=== PATIENT | male | born 1985 | race Caucasian/White ===

== ENCOUNTER 2017-03-14 09:05 | Emergency (ER) | payer MEDICARE ==
[2017-03-14] MEDS ORDERED: Acetaminophen-Codeine 300/30 mg Tab PO STA (09:44)
--- NOTE | 2017-03-14 09:44 | C.PDOC ---
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 N OTHER ASSOC INJURY. LIMITED WT BEAR EXAM NONTOXIC EXT R LE +GEN TEND R LAT FOOT W MOD SWELL NO GROSS DEFORM. NONTEND R MALL SKIN INTACT NEURO INTACT Time Seen by Provider: 03/14/17 09:35 Chief Complaint (Nursing): Lower Extremity Problem/Injury History Per: Patient History/Exam Limitations: no limitations Onset/Duration Of Symptoms: Sudden Onset (CLINICAL ENGINEER) Current Symptoms Are (Timing): Still Present Past Medical History Reviewed: Historical Data, Nursing Documentation, Vital Signs Vital Signs: Last Vital Signs Temp 97.2 F L 03/14/17 09:13 Pulse 86 03/14/17 09:13 Resp 16 03/14/17 09:13 BP 144/95 H 03/14/17 09:13 Pulse Ox 95 03/14/17 10:22 - Medical History PMH: Crohn's Disease, Gastritis, Gastrointestinal Ulcer Family History: States: No Known Family Hx - Social History Hx Alcohol Use: No Hx Substance Use: No - Immunization History Hx Tetanus Toxoid Vaccination: Yes Hx Influenza Vaccination: No Hx Pneumococcal Vaccination: No Review Of Systems Except As Marked, All Systems Reviewed And Found Negative. Musculoskeletal: Positive for: Foot Pain (right ankle/foot). Negative for: Leg Pain Neurological: Negative for: Weakness, Numbness Physical Exam - Physical Exam Appears: Non-toxic, No Acute Distress Skin: Warm, Dry, No Rash Head: Atraumatic, Normacephalic Oral Mucosa: Moist Respiratory: Normal Breath Sounds Extremity: Normal ROM, No Calf Tenderness, Other (Right Leg - general tenderness to right lateral foot with moderate swelling, no gross defromity, nontender right malleolus) Neurological/Psych: Oriented x3, Normal Speech, Normal Motor ED Course And Treatment O2 Sat by Pulse Oximetry: 95 (RA) Pulse Ox Interpretation: Normal - Other Rad R ANKLE X-Ray: Interpreted by Me, Viewed By Me Interpretation: NEG R FOOT X-Ray: Interpreted by Me, Viewed By Me Interpretation: NEG Medical Decision Making Medical Decision Making: PLAN: * X-Ray - Right Ankle, Right Foot * Tylenol PO * Tylenol/Codeine PO Disposition Counseled Patient/Family Regarding: Studies Performed, Diagnosis, Need For Followup, Rx Given - Disposition Referrals: Carrie Oden MD [Staff Provider] - Varun Cantor DPM [Staff Provider] - Disposition: HOME/ ROUTINE Disposition Time: 10:20 Condition: IMPROVED Prescriptions: Acetaminophen/Codeine [Tylenol/Codeine 300 MG/30 MG] 1 tab PO Q4H #12 tab Ibuprofen [Motrin] 600 mg PO Q6 #30 tab Instructions: Ankle Sprain (ED), Crutch Instructions (ED), Splint Care (ED), Foot Sprain (ED) Forms: [employer] (Kosovan), Work Excuse - Clinical Impression Clinical Impression: Ankle sprain, Foot sprain - Scribe Statement The provider has reviewed the documentation as recorded by the Nhiibjose Nunez Provider Attestation: All medical record entries made by the Nhiibjose were at my direction and personally dictated by me. I have reviewed the chart and agree that the record accurately reflects my personal performance of the history, physical exam, medical decision making, and the department course for this patient. I have also personally directed, reviewed, and agree with the discharge instructions and disposition. Orthopedic Care Application Of:: Posterior Short Leg Splint - Ambulation Aids Ambulation Aids: Adult Crutches
[2017-03-14] MEDS ORDERED: Acetaminophen-Codeine 300/30 mg Tab PO ONE (09:55)
[2017-03-14] MEDS ORDERED: Aluminum Hydroxide/Magnesium Hydroxide Susp (30 mL) ONE (10:07)
--- NOTE | 2017-03-14 10:51 | RAD ---
Right ankle three views History: Trauma. Comparison: None available. Findings: No evidence of acute displaced fracture or dislocation. No significant soft tissue swelling. Ankle mortise is maintained. Talar dome is intact. Impression: Negative acute. If pain persists, consider MRI.
--- NOTE | 2017-03-14 11:33 | RAD ---
PROCEDURE: Right Foot Radiographs. HISTORY: trauma COMPARISON: None available. FINDINGS: BONES: No acute displaced fracture. JOINTS: No dislocation. SOFT TISSUES: Unremarkable. No evidence of radiopaque foreign body. OTHER FINDINGS: None. IMPRESSION: No acute displaced fracture, dislocation, or significant joint effusion identified. If symptoms persist, or if there is continued clinical concern, x-ray follow-up in 7-10 days should be considered.
[2017-03-14 11:47] VITALS: BP 120/80; PULSE 77; RESP 18; TEMP 98; O2SAT 100
== END 2017-03-14 11:45 | disposition home or self-care (01) ==
LOC: C.ER 09:05
DX: S93.401A Sprain of unspecified ligament of right ankle, initial encounter (principal); S93.601A Unspecified sprain of right foot, initial encounter; W10.8XXA Fall (on) (from) other stairs and steps, initial encounter; Y92.9 Unspecified place or not applicable
CPT/HCPCS: 73610; 73630; 97116; 97161; 99285; G8978; G8979; G8980